=== PATIENT | male | born 1975 | race Two or more races ===

== ENCOUNTER 2021-02-25 14:36 | Emergency (ER) | payer OTHER ==
[~2021-02-25] VITALS: Ht 172.7 cm; Wt 90.7 kg
[2021-02-25] MEDS ORDERED: MEDROLPACK PO (20:39)
[2021-02-25] MEDS ORDERED: ORPHENADRINE C100 MG PO (20:39)
[2021-02-25] MEDS ORDERED: KETO10TA2 PO (20:39)
== END 2021-02-25 20:42 | disposition home or self-care (01) ==
LOC: ER 14:36
DX: M25.562 Pain in left knee (principal)